=== PATIENT | female | born 1995 | race Hispanic/Latino ===

== ENCOUNTER 2018-08-07 08:24 | Day surgery (SDC) | payer OTHER ==
[2018-08-05 11:42] VITALS: BMI 21.6
[2018-08-07] MEDS: Lactated Ringer's 1,000 ML IV ONE (09:25)
[2018-08-07 09:38] VITALS: RESP 18
[2018-08-07] MEDS ORDERED: Propofol 10 mg/ml Inj (20 ML) ONE ×2 (10:08→10:20)
[2018-08-07] MEDS ORDERED: ePHEDrine 50 mg/ml Inj ONE (10:09)
[2018-08-07] MEDS ORDERED: Succinylcholine 200 mg/10 ml Inj IV ONE (10:09)
[2018-08-07] MEDS ORDERED: Midazolam 2 MG/2 ML VIAL ONE (10:09)
[2018-08-07] MEDS ORDERED: Lidocaine 4% (Laryng-O-Jet) Kit MM ONE (10:09)
[2018-08-07] MEDS: Lidocaine 2% Jelly (Uro-Jet) ONE (10:30)
[2018-08-07] MEDS ORDERED: HYDROmorphone 0.5 mg/0.5 ml ISec IVP PRN (10:51)
[2018-08-07] MEDS ORDERED: Dexamethasone 4 mg/1 ml IVP PRN (10:51)
--- NOTE | 2018-08-07 11:13 | PCM.SURG1 ---
Surgeon's Initial Post Op Note - Surgeon's Notes Surgeon: Karel Nuclear Medicine Physician: Isabel Type of Anesthesia: General Mask Anesthesia Administered By: Staff Pre-Operative Diagnosis: Left ureteral stent Operative Findings: same Post-Operative Diagnosis: same Operation Performed: Cysto remove stent Specimen/Specimens Removed: stent Estimated Blood Loss: EBL {In ML}: 0 Blood Products Given: N/A Drains Used: No Drains Post-Op Condition: Good Date of Surgery/Procedure: 08/07/18 Time of Surgery/Procedure: 10:40
[2018-08-07] MEDS: Lactated Ringer's 1,000 ML IV SCH (12:00)
[2018-08-07 12:20] VITALS: BP 108/60; PULSE 47; TEMP 98.5; O2SAT 100
--- NOTE | 2018-08-07 21:51 | OP ---
PROCEDURE DATE: 08/07/2018 PREOPERATIVE DIAGNOSIS: Left ureteral stent, no evidence of calculi. POSTOPERATIVE DIAGNOSIS: Left ureteral stent, no evidence of calculi. PROCEDURE: Cystoscopy and removal of stent. SURGEON: Aamir Vinson MD. DESCRIPTION OF PROCEDURE: Prior to the procedure, a detailed informed consent was obtained from the patient. She is aware of the possibility of renal colic or further stones after stent is removed. We reviewed the KUB which was done prior to the patient coming to the [facility]-Day Surgery and this showed no evidence of calculi. The patient agreed to accept the risk of the procedure and was brought into the room. A time-out was taken according to the rules and regulation of [facility]. A 2% Xylocaine jelly was instilled per urethra and the patient was cystoscoped with a #21 Storz panendoscope. A stent was seen protruding from the left ureteral orifices, was grabbed and removed. The patient tolerated this procedure very well. The patient was sent to the recovery room in good condition. The stent was sent for pathological analysis. The patient was advised she needs to follow up in our office again in one month. Aamir Vinson MD
== END 2018-08-07 12:40 | disposition home or self-care (01) ==
LOC: H.OPSURG 08:24
PROVIDERS: ATTEND Urology
DX: N20.0 Calculus of kidney (principal)
CPT/HCPCS: 52315; 88304; J0690; J2001; J2250; J2704; J3010; J7120

== ENCOUNTER 2018-12-30 12:54 | Emergency (ER) | payer OTHER, SELFPAY ==
[2018-12-30 12:54] VITALS: BMI 21.6
--- NOTE | 2018-12-30 14:42 | ED PDOC ---
HPI: Trauma/Fall - HPI Time Seen by Provider: 12/30/18 14:20 Chief Complaint (Nursing): Trauma Chief Complaint (Provider): Trip and fall History Per: Patient History/Exam Limitations: no limitations Onset/Duration Of Symptoms: Days (1) Injury Occurred (Timing): Days Ago: (1) Location Of Injury: Right: Hand, Left: Foot Associated Symptoms: denies: Dizziness, Dazed, LOC, Seizure Additional History Per: Patient Additional Complaint(s): 23yo female, otherwise well, comes to ER reporting pain and swelling to her right hand, left foot and pain to lower back after she tripped and fell yesterday. Patient [place] she [place], and slid down the steps on her buttocks; states while attempting to break her fall, she put her hand out straight behind her. She also reports pain to left foot and believes she injured it during the fall. No head injury, loss of consciousness, weakness, numbness, tingling, urinary symptoms. No additional medical complaints. PMD: None NKDA - Fall Fall:Prior To Injury: Tripped Past Medical History Reviewed: Historical Data, Nursing Documentation, Vital Signs Vital Signs: Last Vital Signs Temp 99 F 12/30/18 13:07 Pulse 54 L 12/30/18 13:07 Resp 18 12/30/18 13:07 BP 128/82 12/30/18 13:07 Pulse Ox 100 12/30/18 13:07 - Medical History PMH: Arthritis (hands), Depression, Kidney Stones (1st kidney stones.) Denies: Chronic Kidney Disease - Surgical History Surgical History: No Surg Hx - Family History Family History: States: Unknown Family Hx - Social History Current smoker - smoking cessation education provided: Yes (occasional cigarettes) Alcohol: Social Drugs: Denies - Immunization History Hx Tetanus Toxoid Vaccination: No Hx Influenza Vaccination: No Hx Pneumococcal Vaccination: No - Home Medications Home Medications: Ambulatory Orders Medication Instructions Recorded Naproxen 500 mg PO BID PRN #20 tab 12/30/18 - Allergies Allergies/Adverse Reactions: Allergies Allergy/AdvReac Type Severity Reaction Status Date / Time onion Allergy RASH Verified 12/30/18 13:07 Review of Systems ROS Statement: Except As Marked, All Systems Reviewed And Found Negative Eyes: Negative for: Vision Change Cardiovascular: Negative for: Chest Pain Respiratory: Negative for: Shortness of Breath Genitourinary Female: Negative for: Dysuria, Hematuria Musculoskeletal: Positive for: Back Pain (lower back), Hand Pain (right), Foot Pain (left) Neurological: Negative for: Weakness, Numbness, Headache Physical Exam - Reviewed Nursing Documentation Reviewed: Yes Vital Signs Reviewed: Yes - Physical Exam Comments: GENERAL APPEARANCE: Patient is awake, alert, oriented x 3, in no acute distress. SKIN: Warm, dry; (-) cyanosis. HEAD: atraumatic EYES: (-) conjunctival pallor. ENMT: Mucous membranes moist. NECK: (-) tenderness, (-) stiffness, (-) lymphadenopathy.(+)FROM CHEST AND RESPIRATORY: (-) rales, (-) rhonchi, (-) wheezes; breath sounds equal bilaterally. HEART AND CARDIOVASCULAR: (-) irregularity; (-) murmur, (-) gallop. ABDOMEN AND GI: Soft; (-) tenderness; (-) palpable mass. BACK: (+) S1/coccyx tenderness, (+) left para-sacral tenderness, (-) direct bony tenderness, (-) deformity. Straight leg raising (-) bilaterally. EXTREMITIES: (-) deformity. Distal pulses good bilaterally. (+) Decreased ROM of right hand due to pain; normal flexion and extension of DIP and PIP. (+) Eccymosis, swelling and tenderness noted to right medial hand, around 4th/5th MTP. (+) FROM of left foot (+) Tenderness and swelling noted to lateral left foot. NEURO AND PSYCH: Mental status as above. Intact sensation bilaterally; normal strength in extension of the knees, plantar and dorsiflexion of the toes. DTRs symmetric. - ECG O2 Sat by Pulse Oximetry: 100 (RA) Pulse Ox Interpretation: Normal Medical Decision Making Medical Decision Making: Musculoskeletal injuries s/p trip and fall Plan: -- XR Right hand -- XR Left foot -- XR Sacral Spine -- Motrin 600mg PO 1531 XR Left foot: no fracture, no dislocation, as read by PA. XR Sacrum/Coccyx: no fractures or dislocations, as read by PA XR Right hand: Fracture noted to right 5th proximal metacarpal -- Patient to be placed in a right ulnar gutter splint Patient advised that official radiology read of XR is still pending and will call the patient if there is any discrepancy within 24 hours. If XR reports are not in by the time the patient is dc, include: Patient advised that official radiology read of XR is still pending and will call the patient if there is any discrepancy within 24 hours. 1553 Post splint neurovascular exam is normal, normal capillary refill and normal distal sensations. Patient informed to follow up with orthopedist without fail; instructed on RICE and symptomatic care. Stable for discharge home. Discussed results, diagnosis, treatment, return precautions and f/u with pt who is understanding, in agreement and stable for dc Scribe Attestation: Documented by Flori George, acting as a scribe for VICKY Contreras. Provider Scribe Attestation: All medical record entries made by the Scribe were at my direction and personally dictated by me. I have reviewed the chart and agree that the record accurately reflects my personal performance of the history, physical exam, medical decision making, and the department course for this patient. I have also personally directed, reviewed, and agree with the discharge instructions and disposition. Disposition - Clinical Impression Clinical Impression: Fall down stairs, Nondisp fx base fifth metacarpal bone right hand w/routine heal, Contusion of toe of left foot, Contusion of sacrococcygeal region - Patient ED Disposition Is Patient to be Admitted: No Counseled Patient/Family Regarding: Studies Performed, Diagnosis, Need For Followup, Rx Given - Disposition Referrals: [facility] [Outside] Socorro Macdonald MD [Medical Doctor] - Disposition: Routine/Home Disposition Time: 15:55 Condition: STABLE Additional Instructions: Return to ED for new or worsening symptoms, fever >100.4, numbness or tingling, changes in skin color, severe pain, unable to walk, urinary or bowel incontinence. Follow up with the clinic or hand specialist as listed in 5-7 days. Rest, ice and elevate. Keep splint on until follow up, keep clean and dry. Take Ibuprofen as needed for pain. Prescriptions: Naproxen 500 mg PO BID PRN #20 tab PRN Reason: Pain, Moderate (4-7) Instructions: Hand Fracture (DC), Contusion (DC), Coccyx Injury (DC) Forms: [employer] (Albanian), [facility] ED School/Work Excuse Print Language: UZBEK - POA Present On Arrival: None Results - Diagnostic Imaging Results Radiology Results Foot X-Ray 12/30/18 14:16 IMPRESSION: No acute findings Hand X-Ray 12/30/18 14:16 IMPRESSION: Acute proximal 5th metacarpal fracture. Major fracture fragments are anatomically aligned. Sacrum and Coccyx X-Ray 12/30/18 14:16 IMPRESSION: Unremarkable radiographs of the sacrum and coccyx.
[2018-12-30 16:07] VITALS: BP 120/78; PULSE 78; RESP 20; TEMP 97.6
--- NOTE | 2018-12-30 16:55 | RAD ---
Date of service: 12/30/2018 PROCEDURE: Radiographs of the Sacrum and Coccyx HISTORY: fall COMPARISON: None available. TECHNIQUE: Frontal and lateral views of the sacrum and coccyx. 4 views obtained. FINDINGS: BONES: Sacrum and coccyx unremarkable. No fracture or focal lesion. SACROILIAC JOINTS: Unremarkable. OTHER FINDINGS: None. IMPRESSION: Unremarkable radiographs of the sacrum and coccyx.
--- NOTE | 2018-12-30 16:56 | RAD ---
PROCEDURE: Right Hand Radiographs. HISTORY: fall, 4th and 5th pain swelling bruise COMPARISON: None. TECHNIQUE: 3 views obtained. FINDINGS: BONES: Acute proximal 5th metacarpal fracture. JOINTS: Normal. No osteoarthritic changes. SOFT TISSUES: Soft tissue swelling attests to the acuity of the fracture. OTHER FINDINGS: None. IMPRESSION: Acute proximal 5th metacarpal fracture. Major fracture fragments are anatomically aligned.
--- NOTE | 2018-12-30 17:01 | RAD ---
Date of service: 12/30/2018 PROCEDURE: Left foot, 5th digit. HISTORY: fall bruise COMPARISON: None TECHNIQUE: Three views. FINDINGS: No significant/acute osseous, articular or soft tissue abnormalities. IMPRESSION: No acute findings
[2018-12-30 23:51] VITALS: O2SAT 100
== END 2018-12-30 16:09 | disposition home or self-care (01) ==
LOC: H.ER 12:54
DX: S30.0XXA Contusion of lower back and pelvis, initial encounter (principal); S60.221A Contusion of right hand, initial encounter; S90.122A Contusion of left lesser toe(s) without damage to nail, initial encounter; S90.32XA Contusion of left foot, initial encounter; W10.9XXA Fall (on) (from) unspecified stairs and steps, initial encounter; Y92.89 Other specified places as the place of occurrence of the external cause